=== PATIENT | female | born 1945 | race Caucasian/White ===

== ENCOUNTER 2016-12-07 10:38 | Day surgery (SDC) | payer MEDICARE, OTHER ==
[~2016-12-07] VITALS: Ht 157.5 cm; Wt 77.6 kg
[2016-12-07] VITALS (14 sets, daily range): BP systolic 94–163; BP diastolic 49–84; PULSE 71–84; RESP 11–20; O2SAT 97–100
[2016-12-07] MEDS: Lactated Ringer's 1,000 ML IV SCH ×2 (05:00→13:11)
[2016-12-07] MEDS: Clindamycin Inj 900 MG in IV Premix 1 EACH IV SCH ×2 (06:00→12:40)
--- NOTE | 2016-12-07 08:31 | PCM.HPANE ---
Patient Data Surgeon Admitting Provider: Attending Provider:Syed Harrison MD Primary Care Physician:Kennedy Ballard MD Other Provider:Lindsay Wuingham Anesthesia Reason for Visit Right Breast Cancer Ht/WT & BMI Height (Feet): 5 Height (Inches): 2 Weight (Kilograms): 77.56 Body Mass Index 31.00 Allergies Coded Allergies: Cephalosporins (Verified Allergy, Unknown, 07/19/09) amoxicillin (Verified Allergy, Unknown, 05/27/15) clavulanic acid (Verified Allergy, Unknown, 05/27/15) codeine (Verified Allergy, Unknown, 10/31/15) Past Anesthesia History Anesthesia History: Positive for:: Anesthesia Reactions (1984- excessive vomiting, no prior surgery recurrent), Denies:: Abnormal Airway, Difficult Intubation, Fam Anesthesia Reaction Diabetes History Hx Diabetes?: Yes Type of Diabetes: Type II Glycemic Control: Oral Medication MRSA MRSA: No Medications Blood Thinner: Aspirin Hypertension Medication: No Home Meds Incl Beta Eva: No Reported Medications Fulvestrant (Faslodex)250 Mg/Syr [id number] Mg IM 12/15/15 Palbociclib (Ibrance)125 Mg Tkphsei214 Mg PO daily x 21 days 12/15/15 Denosumab (Xgeva)120 Mg/1.7 Ml Annj199 Mg SUBQ monthy 06/23/15 Ergocalciferol (Vitamin D2) (Vitamin D)400 Unit Lsjynf980 Unit PO DAILY 06/15/15 Calcium Carbonate (Calcium)600 Mg Utfybg534 Mg PO DAILY 06/15/15 Multivitamin (Multi Vitamin Daily)1 Each Tablet1 Each PO DAILY 30 Days Ref 0 06/02/15 Simvastatin 20 Mg Kfzenn87 Mg PO HS Ref 0 06/02/15 Krill Oil 500 Mg Mohiahp544 Mg PO DAILY 06/02/15 Citalopram 40 Mg Azxzbk21 Mg PO DAILY 30 Days Ref 0 06/02/15 Aspirin 81 Mg Wprpft80 Mg PO DAILY Ref 0 06/02/15 Naproxen Sodium (Aleve)220 Mg Zgkasrx810-111 Mg PO DAILY PRN For Pain 06/02/15 History History of ENT Problems?: Yes HEENT History: Positive for:: Sinus Problem Denies:: Abnormal Airway Cataracts Difficult Intubation Dysphagia Glaucoma Hearing Problem TMJ Hx of Heart Problems?: No Cardiovascular History: Denies:: AICD Abdominal Aortic Aneurism Atrial Fibrillation Heart Murmur Hypertension Irregular Heartbeat Pacemaker Peripheral Vascular Rheumatic Fever Hx of Respiratory Problem?: No Respiratory History: Denies:: Asthma COPD Emphysema Oxygen Administration Pneumonia Tuberculosis Use of C-PAP Machine Use of Inhalers / NEBS Hx Neurologic Problems?: No Neurological History: Denies:: CVA Dementia Dizziness Headaches Multiple Sclerosis Parkinson's Disease Seizures TIA Hx of GI Problems?: Yes Gastrointestinal History: Positive for:: Gall Bladder Disease (removed) Gastroesphageal Reflux Heartburn Denies:: Hepatitis Liver Disease (fatty liver disease ) Hx of Problems?: No Genitourinary History: Denies:: Kidney Stones Urinary Tract Infection Female Hx: Positive for:: Problems with Breasts? (left breast ca current admission problem, hx of right breast ca) Denies:: Currently Skin History: Denies:: History Skin Disorders? Pressure Ulcers Hx Musculoskeletal Problems?: Yes Musculoskeletal History: Positive for:: Musculoskeletal Trauma (metastatic disease) Denies:: Back Injury Fibromyalgia Joint Replacement Myasthenia Gravis Osteoarthritis Hx of Psycho/Social Problems?: No Hx Surgeries?: Yes (right partial mast/ax node, windy, curtis, right ovarian cyst) Hx Any Other Health Problems?: Yes Other History: Positive for:: Cancer (right breast hx, left breast current ) Denies:: Thyroid Disease History Blood Transfusions: Positive for:: Accept Blood Products? Denies:: Blood Transfusions Hx Diabetes: Yes Hx Alcohol Use: NoHx Substance Use: No Smoking Status: Never Smoker Have You Smoked inLast 12 mo: No Stop/Bang Treated for Sleep Apnea?: No Do You Have a CPAP Machine?: No S-Snoring: Do You Snore Loudly: No T-Tired: feel tired, fatigued: No O-Obsered: Observed not breath: No P-Blood Pressure: treated: No B- Body Mass Index > 35 kg/m2: No A- Age over 50: Yes N- Neck Large Circumference: No G- Gender Male: No DEVYN Total Score: 1 DEVNY Risk Assessment: Low Risk, <3 Yes Risk Assessment Category Category 1A: Patient has history of documented sleep apnea, and HAS NOT received any narcotic, sedative or anesthesia administration during this stay. Category 1B: Patient has history of documented sleep apnea, and HAS received any narcotic , sedative or anesthesia administration during this stay Category 2: Patient has SUSPECTED Obstructive Sleep Apnea, and HAS received any narcotic , sedative or anesthesia administration during this stay. Category 3: Patient has SUSPECTED Obstructive Sleep Apnea and HAS NOT received narcotic, sedative or anesthesia administration during this stay. Category 4: Outpatient in Procedural Areas with known sleep apnea or who screen positive for High Risk via the STOP/BANG questionnaire. Exam Exam General Appearance: Alert, Oriented X3, Cooperative, No Acute Distress HEENT/AIRWAY: MP 2 Lungs: Clear to Auscultation, Normal Air Movement Heart: Exam Unremarkable, Regular Rate/Rhythm, No Murmurs/Rubs/Gallops Plan Impression Patient chart reviewed, patient interviewed and anesthestic plan with risks, benefits, and alternatives discussed, and informed consent obtained. NPO Status: 04/18@dinner, gum this am & water w am Rx ASA Physical Status: ASA2 Mod Systemic Disease Anesthetic Plan: Brett Vaca MD Dec 07, 2016 08:30
[~2016-12-07 10:38] MED LIST: ASPI-973 PO; CALC600T12 PO; CITA40TA13 PO; DENO120V SUBQ; ERGO400T3 PO; FAS500INJ IM; KRIL500C PO; MULT-1018 PO; NAPR220C11 PO; PALB125C PO; SIMV20TA4 PO
[2016-12-07] MEDS ORDERED: fentaNYL-PF 50 mCg/mL 2 mL Inj ONE (10:39)
[2016-12-07] MEDS ORDERED: Ketamine 10 mg/mL 20 mL Inj ONE (10:39)
[2016-12-07] MEDS ORDERED: Clindamycin 900 mg/50 mL D5W Premix IV ONE (11:59)
[2016-12-07] MEDS ORDERED: Bupivacaine-MPF 0.5% 30 mL Inj INFILTRATE ONE (13:10)
[2016-12-07] MEDS ORDERED: Lactated Ringer's 1,000 ML IV ONE (14:20)
[2016-12-07] MEDS ORDERED: Lactated Ringer's 1,000 ML IV SCH (14:50)
[2016-12-07] MEDS ORDERED: Ondansetron 2 mg/mL 2 mL Inj IVPUSH PRN ×2 (14:50→15:05)
[2016-12-07] MEDS ORDERED: Lactated Ringer's 500 ML IV PRN (14:50)
[2016-12-07] MEDS ORDERED: Dexamethasone 4 mg/mL Inj IVPUSH PRN (14:50)
[2016-12-07] MEDS ORDERED: MetoCLOpramide 5 mg/mL 2 mL Inj IVPUSH PRN ×2 (14:50→15:05)
[2016-12-07] MEDS ORDERED: Phenylephrine 10,000 mCg/mL Inj IVPUSH PRN (14:50)
[2016-12-07] MEDS ORDERED: fentaNYL-PF 50 mCg/mL 2 mL Inj IVPUSH PRN (14:50)
[2016-12-07] MEDS ORDERED: EPHEDrine Sulfate 50 mg/mL Inj IVPUSH PRN (14:50)
[2016-12-07] MEDS ORDERED: Polyethylene Glycol (PEG) 17 Gm Powder PO PRN (15:05)
[2016-12-07] MEDS ORDERED: Morphine PCA 1 mg/mL 30 mL Inj IV PRN (15:10)
--- NOTE | 2016-12-07 15:21 | PCM.SURGOP ---
Surgical Operative Report Date of Service: Dec 07, 2016 Pre Operative Diagnosis Right breast cancer Post Operative Diagnosis Same Procedure: Bilateral simple mastectomy with right chest wall resection Surgeon and Drop Machine Operator: Surgeon: Syed Harrison MD Assistants: Eldon Ontiveros PA-C Indication for Procedure 71-year-old woman who was originally diagnosed with right breast invasive lobular carcinoma in 2000, treated at that time with lumpectomy, axillary lymphadenectomy, adjuvant radiation and chemotherapy. She was then diagnosed with recurrent right breast cancer in May 2015 with widespread bony metastases. She has been treated with hormonal therapy. Recent PET/CT showed uptake in the right breast mass with maximum SUV 7.5. There was uptake in her bones, but no visceral metastases. MRI of the breast demonstrated the mass measuring 8.1 x 3.2 x 2.7 centimeters with peripheral enhancement. On my review , it was concerning for right pectoralis muscle involvement. Clinically, the mass was fixed in her chest wall as well. After discussion of risks and benefits, she agreed to proceed with bilateral mastectomy. Findings: There was no abnormality appreciated at the left breast. On the right side, on the posterior surface of the breast involving the right pectoralis major muscle , and even extending deep to the pectoralis major muscle, there was firm fibrotic tissue. This extended all the way to the ribs. Considerable portion of right pectoralis major muscle was resected en bloc, and a separate chest wall margin was taken as well. Procedure Details After smooth induction of general anesthesia, she was placed in the supine position with both arms out, and was prepped and draped in wide sterile fashion. A procedural pause was performed according to the SCOAP checklist, and all were found to be in agreement. Left simple mastectomy was performed first. An elliptical incision was made in the skin oriented transversely, encompassing the nipple areolar complex. She had a very broad breast and excess adipose tissue on her flank, so the incision extended nearly onto her back. Skin flaps were raised superiorly and inferiorly. Circumferential dissection was carried out with electrocautery as the skin and subcutaneous tissue was elevated off the underlying breast capsule. Margins of dissection were the left clavicle, the midline, the left inframammary crease, and the left midaxillary line. The left upper chest wall Port-A-Cath site was encountered, but the capsule was not violated. The left breast was then elevated off the underlying chest wall, and pectoralis fascia was resected en bloc. Laterally, the serratus fascia was not violated. The left breast was dissected free, oriented with suture, and passed off the field for permanent pathology. There was some excess left flank tissue, so separate ellipse was made laterally in order to help smooth out her flank contour. That tissue was dissected free with electrocautery down to the latissimus muscle area and it was oriented with suture, and sent for permanent pathology labeled as left flank skin. A 19 Thai round HARVEY drain was brought out through a separate incision laterally, and secured to the skin with a 3-0 nylon suture. The skin incision was closed with interrupted deep dermal 3-0 Vicryl sutures, and a running 4-0 Vicryl subcuticular stitch. An elliptical incision was then made on the right breast, encompassing the nipple areolar complex, as well as her prior transverse incision in the 12 o'clock position. Can flaps were raised superiorly and inferiorly. Circumferential dissection was carried out with electrocautery as the skin and subcutaneous tissue was elevated off the underlying breast parenchyma. Because of her prior radiation on that side, the dissection plane was very abnormal, and a capsule on the breast could not be appreciated. Margins of dissection were the right clavicle, the midline, the right inframammary crease, and the right anterior axillary line. The right axilla was very tethered with dense scar tissue that was released with electrocautery. The right breast was then elevated off the underlying chest wall. In the central to inferior breast, the breast was densely adherent to the underlying pectoralis muscle, so pectoralis major muscle was resected en bloc over an area measuring approximately 8 x 8 cm. Dissection was carried through very dense white tissue deep to the pectoralis major muscle. The right breast was oriented with suture, and passed off the field for permanent pathology. I elected to take another chest wall margin of the dense white tissue from the entire central to lateral portion of the dissection field. This time, the deep margin of dissection were the ribs, and there was still abnormal-appearing dense white fibrotic tissue. That tissue was dissected free , oriented with suture, and passed off the field, labeled as right chest wall tissue. Hemostasis was achieved. 5 mL of FloSeal was applied to the chest wall resection site. A 19 Thai round HARVEY drain was brought out through a separate incision laterally, and secured to the skin with a 3-0 nylon stitch. The skin incision was closed with interrupted deep dermal 3-0 Vicryl sutures, and a running 4-0 Vicryl subcuticular stitch. Steri-Strips and sterile dressings were applied to both sides. At the end of the case all needle and sponge counts were correct 2. The patient was awakened from anesthesia without difficulty, and taken to the recovery room in satisfactory condition, having tolerated the procedure well. Complications There were no periprocedural complications identified. Surgical Specimen Removed: Yes Specimen sent to Pathology: Yes Surgical Specimen description: Left breast. Left flank skin. Right breast. A chest wall tissue. Anesthetic Plan: GA Grafts, Implants: None Output, Estimated Blood Loss: 50 Blood Administration during steiner: No Drains: HARVEY Drain #1, HARVEY Drain #2 Catheters: None copies to: Neel Espinoza MD; Kennedy Ballard MD, Joshua D MD Dec 07, 2016 15:21
--- NOTE | 2016-12-07 16:26 | PCM.DISURG ---
Surgical Discharge Instruction Date of Service Dec 07, 2016 Dates of Hospitalization Date of Hospital Admission Providers Admitting Physician: Primary Care Physician: Kennedy Ballard MD Attending Physician: Syed Harrison MD Discharge Diagnosis Discharge Diagnosis right breast cancer Post Operative diagnosis Same Diet Discharge Diet: No restrictions Activity Discharge Activity-General: Activity as pain allows Dressing and Incisional Care Dressing Care: Allow Steri Stripes to fall off, Remove outer dressing after 24 hrs Hygiene: May shower Additional Instructions Discharge Instructions Empty HARVEY drains and record output daily, or more frequently as needed. Call the surgery clinic when individual drain output is less than 30mL in 24 hours for 2 consecutive days, and the drain can be removed in the office at that time. Follow Up Plan Follow Up Plan with Dr. Harrison in 10-14 days. Call your provider for: Fever (over 101.5F), Vomiting, Discharge @ incision, pus discharge Syed Harrison MD Dec 07, 2016 16:26
--- NOTE | 2016-12-07 16:48 | NUR ---
Post Op Pt arrived from PACU to OSC unit, 1022, via gurney. Scooted over to bed. Pt A&OX3 - talking, CORDERO, SCDs on, IV patent, VSS = on 4L NC, CPOx in place - Dr. Harrison and this RN educating pt re: IMPREGNATING HELPER machine for pain; Pt with bilateral mastectomy - dressing CDI, Bilateral HARVEY drains - patent and full - emptied and bulb to suction, on P500 SAE bed, Pain stating pain 2/10 after receiving IVP pain medication prior to arrival from PACU. Chart up to front for any additional orders. Denies numbness/tingling. Oriented to room and call light. Care continues. Addendum: 12/07/16 at 1652 by LOUIS JACOBS RN Pt with portacath to left side of chest, not accessed.
[2016-12-07] MEDS: Dextrose 5% 0.9% NaCl 1,000 ML IV SCH (16:53)
--- NOTE | 2016-12-07 22:55 | NUR ---
BLEEDING: At about 2100 pt. got up to the bathroom with one person SBA, voided, when she came back to bed noticed bleeding on left side incision. Applied pressure dressing and ice bag, the bleeding did not stop, then called paleontological helper surgeon. Dr. Ballard came in immediately and assessed Pt. replaced dressing, applied fresh steri strips, bleeding stopped. Jeovanny wrap applied around her chest. No more bleeding seen. cont. to monitor. Addendum: 12/07/16 at 0193 by GOPAL AZUL RN (NELLY) ADDENDUM: pt's IV also fell out when she got up from the toilet. New Iv line placed without difficulty. On going care.
[2016-12-08 00:53] VITALS: BP 138/76; PULSE 75; RESP 20; O2SAT 98
[2016-12-08] MEDS: Acetaminophen IV 1,000 MG in IV Premix 1 EACH IV PRN ×2 (01:10→08:50)
[2016-12-08 05:00] VITALS: RESP 20; O2SAT 98
[2016-12-08 05:29] VITALS: BP 142/68; PULSE 86; RESP 20; O2SAT 98
[2016-12-08 05:53] LABS: APPEARANCE,URINE CLEAR (CLEAR,HAZY); COLOR,URINE YELLOW (YELLOW); OCCULT BLOOD,URINE NEGATIVE (NEGATIVE); PH,URINE 5.5 (5.0-8.0); UROBILINOGEN,URINE NORMAL (NORMAL)
[2016-12-08] MEDS: Dextrose 5% 0.9% NaCl 1,000 ML IV SCH (06:50)
--- NOTE | 2016-12-08 12:57 | NUR ---
PT consult for ROM ther ex pt seen briefly for instruction in ROM ther ex, including shldr elev to 90 deg, elbow flex/ext; wrist flex/ext and radial/ulnar deviation; and finger flexion; encouraged to perform 10 reps 2-3x daily; encouraged to maintain UEs elevated on pillows when sitting around to control swelling; instructed in ways to don/doff clothing; encouraged to f/u with OP PT specializing in lymphedema management, if becomes an issue; no further PT
--- NOTE | 2016-12-08 13:33 | NUR ---
discharged home with family, incision looked good, scant bleeding now. taught how to take care of HARVEY drains. Pt eating/drinking, ambulating, will have f/u appt with Dr Harrison in 10-14 days
--- NOTE | 2016-12-08 15:51 | PROG NOTE ---
[address] [address] PROGRESS NOTE PATIENT: CIRO DOS SANTOS : 1945 MR#: [id number] ADMIT: 12/07/2016 JOB ID: [id number] DATE: 12/08/2016 Postop day one bilateral mastectomy. There was some incisional bleeding last night and she had her wounds inspected and a pressure dressing placed. I have removed the pressure dressing today. There has been no further bleeding and the wounds appear in good shape without wound separation. She is otherwise doing well, afebrile with stable vital signs. We will advance her to regular food and if she does well let her go home after lunchtime.
--- NOTE | 2016-12-09 08:53 | PCM.ANEP2 ---
Post Anesthesia Evaluation ASA/CMS Post Anesthesia VS in Patient's Normal Range?: Yes Resp Stable; Airway Patent?: Yes CV Function & Hydration Stable: Yes Mental Status Recovered?: Yes Pain control Satisfactory?: Yes N/V Control Satisfactory?: Yes Brett Connolly MD Dec 09, 2016 08:53
--- NOTE | 2016-12-09 08:53 | PCM.ANEP1 ---
Post Anesthesia Phase 1 PACU Phase 1 Assessment Date of Service: Dec 07, 2016 Anesthetic Administered: GA Level of Alertness: Awake, talking CORDERO's with Equal Strength: Yes Pain: No Pain Scale Score: 1 Nausea or Vomiting: No Lungs: Clear to Auscultation, Normal Air Movement Dermatome Level: Full Sensation Brett Connolly MD Dec 09, 2016 08:53
--- NOTE | 2016-12-10 08:15 | PCM.DC.SUR ---
Discharge Summary Date of Service: Date of Hospital Admission: December 03, 2016 Date of Operation(s): December 03, 2016 Date of Discharge: Dec 08, 2016 at 13:24 Diagnosis at Time of Discharge Primary Diagnosis: Right Breast cancer Secondary diagnosis: GERD depression Pre-diabetes Problems: Operation Bilateral simple mastectomy with right chest wall resection Brief History and Physical: 71-year-old woman who was originally diagnosed with right breast invasive lobular carcinoma in 2000, treated at that time with lumpectomy, axillary lymphadenectomy, adjuvant radiation and chemotherapy. She was then diagnosed with recurrent right breast cancer in May 2015 with widespread bony metastases. She has been treated with hormonal therapy. Recent PET/CT showed uptake in the right breast mass with maximum SUV 7.5. There was uptake in her bones, but no visceral metastases. MRI of the breast demonstrated the mass measuring 8.1 x 3.2 x 2.7 centimeters with peripheral enhancement. On my review , it was concerning for right pectoralis muscle involvement. Clinically, the mass was fixed in her chest wall as well. After discussion of risks and benefits, she agreed to proceed with bilateral mastectomy. Consultants: NONE Hospital Course: POD # [address] Finnegan's Progress Note Postop day one bilateral mastectomy. There was some incisional bleeding last night and she had her wounds inspected and a pressure dressing placed. I have removed the pressure dressing today. There has been no further bleeding and the wounds appear in good shape without wound separation. She is otherwise doing well, afebrile with stable vital signs. We will advance her to regular food and if she does well let her go home after lunchtime. Pathology: Pending Disposition: Home Follow-up Plan: Dr. Syed Harrison 10-14 days Aspirin (Aspirin) 81 Mg Tablet 81 MG PO DAILY (Reported) Calcium Carbonate (Calcium) 600 Mg Tablet 600 MG PO DAILY (Reported) Citalopram (Citalopram) 40 Mg Tablet 40 MG PO DAILY (Reported) Denosumab (Xgeva) 120 Mg/1.7 Ml Vial 120 MG SUBQ monthy (Reported) Ergocalciferol (Vitamin D2) (Vitamin D) 400 Unit Tablet 400 UNIT PO DAILY ( Reported) Fulvestrant (Faslodex) 250 Mg/Syr Syringe 250 MG IM (Reported) Krill Oil (Krill Oil) 500 Mg Capsule 500 MG PO DAILY (Reported) Multivitamin (Multi Vitamin Daily) 1 Each Tablet 1 EACH PO DAILY (Reported) Naproxen Sodium (Aleve) 220 Mg Capsule 220-440 MG PO DAILY PRN PRN For Pain ( Reported) Palbociclib (Ibrance) 125 Mg Capsule 100 MG PO daily x 21 days (Reported) Simvastatin (Simvastatin) 20 Mg Tablet 20 MG PO HS (Reported) copies to: Neel Espinoza MD; Kennedy Ballard MD, Sherri L PA-C Dec 10, 2016 08:15
--- NOTE | 2016-12-11 14:13 | PATH ---
SURGICAL PATHOLOGY Attending Physician:Jewell Winn CASE STATUS: Signed Out PATIENT NAME: CIRO DOS SANTOS PID: [id number] : 1945 DATE COLLECTED:12/07/2016 00:00 SPECIMEN: 1: Breast, Simple Mastectomy (w/o lymph nodes) 2: Skin, biopsy 3: Breast, Simple Mastectomy (w/o lymph nodes) 4: Muscle, Resection CLINICAL HISTORY: 1). LEFT BREAST, SHORT STITCH SUPERIOR, LONG SITITCH LATERAL 2). LEFT LATERAL SKIN, SHORT STITCH SUPERIOR, LONG LATERAL 3). RIGHT BREAST SHORT STITCH SUPERIOR LONG STITCH LATEAL 4). RIGHT CHEST WALL TISSUE, SHORT STITCH SUPEROR, LONG LATERAL FINAL DIAGNOSIS: 1.LEFT BREAST SIMPLE MASTECTOMY: NEGATIVE FOR MALIGNANCY AND SIGNIFICANT ATYPIA. 2.LEFT LATERAL SKIN: NEGATIVE FOR MALIGNANCY AND SIGNIFICANT ATYPIA. 3.RIGHT BREAST SIMPLE MASTECTOMY: INVASIVE CARCINOMA OF THE BREAST, SEE CAP CANCER CASE SUMMARY BELOW. CAP CANCER CASE SUMMARY INVASIVE CARCINOMA OF THE BREAST: PROCEDURE: TOTAL MASTECTOMY (SIMPLE MASTECTOMY) LYMPH NODE SAMPLING: NONE SPECIMEN LATERALITY: LEFT TUMOR SITE: CENTRAL TUMOR SIZE: 6.3 x 5.0 x 2.5 CM HISTOLOGIC TYPE: INFILTRATING LOBULAR CARCINOMA HISTOLOGIC GRADE: [place]HAM HISTOLOGIC SCORE 7 of 9 Glandular/Tubular differentiation: Absent, Score 3 of 3 Nuclear Pleomorphism: Intermediate, Score 2 of 3 Mitotic Rate: Score 2 of 3 Overall Grade: Grade 2 of 3 CARCINOMA IN SITU: NOT IDENTIFIED MACROSCOPIC AND MICROSCOPIC EXTENT OF TUMOR SKIN: NEGATIVE FOR TUMOR NIPPLE: NEGATIVE FOR TUMOR SKELETAL MUSCLE: FOCALLY INVADED BY TUMOR MARGINS INVASIVE CARCINOMA: Anterior: 10.5 CM Posterior: POSITIVE IN MULTIPLE FOCI Superior: POSITIVE IN MULTIPLE FOCI Inferior: 1.6 CM Medial: 9.5 CM Lateral: 6.5 CM LYMPH-VASCULAR INVASION: NOT IDENTIFIED PATHOLOGIC STAGING: AJCC, 7th ed., 2010 PRIMARY TUMOR: pT4 REGIONAL LYMPH NODES: pNX ADDITIONAL PATHOLOGIC FINDINGS: Specify: DENSE FIBROSIS IN AREA OF PREVIOUS METAL CLIPS WITH NO EVIDENCE OF TUMOR IN THIS AREA ANCILLARY STUDIES: Biomarkers Performed Previously on Case: BIOMARKERS PERFORMED ON PREVIOUS NEEDLE BIOPSY ([id number]) Estrogen Receptor (ER) Status: POSITIVE Progesterone Receptor (PgR) Status: NEGATIVE HER2 (by immunohistochemistry): NEGATIVE 4.RIGHT CHEST WALL TISSUE: FIBROFATTY TISSUE AND SKELETAL MUSCLE WITH MULTIPLE FOCI OF INFILTRATING LOBULAR CARCINOMA, INCLUDING AREAS OF INVASION OF SKELETAL MUSCLE. LATERAL INKED MARGIN POSITIVE FOR TUMOR. TUMOR PRESENT LESS THAN 0.1 CM FROM THE NEW POSTERIOR MARGIN. ICD10 CODE C50.111 GROSS DESCRIPTION: The specimens are received in formalin, labeled with the patient's name, and sublabeled as the following: (1) left breast, short superior, long lateral; (2) left lateral skin, long lateral/short superior; (3) right breast, short superior, long lateral; (4) right chest wall tissue. (1) The specimen consists of a left breast (5.2 cm AP, 23.2 cm SI, 28.0 cm ML) partially covered by an ellipse of skin (11.3 cm SI, 28.0 cm ML) with nipple/areola complex (3.7 x 3.5 cm). The axillary tail is absent. The specimen is oriented with 2 black sutures (short-superior, long-lateral). The breast tissue is fibrofatty with no nodules, masses or lesions identified. The skin and nipple/areola complex are hogue-white and unremarkable. Ink code: purple-anterior; yellow-posterior; black-superior; orange-inferior; green-medial; blue-lateral. Section code: (1A) nipple; (1B) skin; (1C, 1D) upper outer quadrant; (1E, 1F) lower outer quadrant; (1G, 1H) upper inner quadrant; (1I, 1J) lower inner quadrant. (2) the specimen consists of an oriented piece of skin with subcutaneous tissue (2.0 cm AP, up to 3.3 cm SI, 11.5 cm ML) oriented with 2 black sutures (short-superior, long is lateral). The skin is hogue-pink and contains a linear puckered area (length-1.1 cm) located 0.5 cm from the superior and 0.4 cm of the inferior resection margins. The subcutaneous tissue is fatty. The nodules, masses or lesions are identified. Ink code: purple-anterior; yellow-posterior; black-superior; orange-inferior; green-medial; blue-lateral. Section code: (2A) medial tip; (2B, 2C) ellipse of skin, serially sectioned and submitted ML, nutrition representative; (2D) lateral resection margin, perpendicularly sectioned, nutrition representative. (3) The consists of a right breast (6.7 cm AP, 22.2 cm SI, 22.3 cm ML) partially covered by an ellipse of skin (8.5 cm SI, 22.3 cm ML) with nipple/areola complex (5.0 x 4.0 cm). The axillary tail is absent. The specimen is oriented with 2 black sutures (short-superior, long-lateral). The skin is hogue-pink in and contains a linear scar (length-10.6 cm) one located 1.0 cm from the inferior resection margin and 3.0 cm inferior to the nipple. The specimen is serially Sectioned LM into 54 slices. The breast tissue is fatty and contains a hogue-yellow and orange solid firm irregular mass (6.3 x 5.0 x 2.5 cm) within slices #13-#32. The mass is 10.5 from the skin nipple surface, less than 0.1 cm from the posterior; less than 0.1 cm from the superior, 1.6 cm from the inferior, 9.5 cm from the medial and 6.5 cm from the lateral resection margins. Within slices #43-#45, an irregular firm fibrous area (2.2 x 1.5 x 1.5 cm) containing multiple silver colored metal clips are identified. No other nodules, masses, lesions, or irregular areas are identified. Ink code: purple-anterior; yellow-posterior; black-superior; orange-inferior; green-medial; blue-lateral. Section code: (3A) nipple; (3B) skin; (3C) lateral resection margin, perpendicularly sectioned, nutrition representative; (3D) slice #13, nutrition representative; (3E) slice #14, nutrition representative; (3F) slice #15, nutrition representative; (3G) slice #16, nutrition representative; (3H) slice #17, nutrition representative; (3I) slice #18, nutrition representative; (3J) slice #19, nutrition representative; (3K) slice #20, nutrition representative; (3L) slice #21, nutrition representative; (3M-3N) slice #22, nutrition representative; (3O-3P) slice #23, nutrition representative; (3Q) slice #24, nutrition representative; (3R) slice #25, nutrition representative; (3S) slice #26, nutrition representative; (3T) slice #27, nutrition representative; (3U) slice #28, nutrition representative; (3V) slice #29, nutrition representative; (3W) slice #30, nutrition representative; (3X) slice #31, nutrition representative; (3Y) slice #32, nutrition representative; (3Z, 3AA) slices #43-#45, nutrition representative; (3BB) medial resection margin, perpendicularly sectioned, nutrition representative. (4) The specimen consists of an oriented piece of muscle (0.5 cm AP, 8.1 cm SI, 5.0 cm ML) oriented with 2 black sutures (short-superior, long left lateral). The tissue is brown and focally if firm and fibrous. No nodules or masses or lesions are identified. Ink code: purple-anterior; yellow-posterior; black-superior; orange-inferior; green-medial; blue-lateral. Section code: (4A) superior resection margin, perpendicularly sectioned; (4B-4H) tissue, serially sectioned and submitted SI; (4I) inferior resection margin, perpendicularly sectioned. The specimen entirely submitted. Note: Approximate total fixation time in formalin are all specimens-52 hours and 30 minutes calculated using a collection date of December 07, 2016 with no collection time given. 12/08/16 JM MICRO DESCRIPTION: See diagnosis. ICD-9 CODES: CPT CODES: 1: 84885 2: 45585 3: 65832 4: 10007 Electronically Signed Out Hung Castillo MD [facility] Pathology [facility] [address], [place] [address] Technical component performed at [facility], [facility] [address], [place], [address]
[2016-12-25] MEDS ORDERED: OXYC1TAB24 PO (09:10)
[2017-01-23] MEDS ORDERED: ASCO-294 PO (11:46)
[2017-01-23] MEDS ORDERED: FERR-83 PO (11:46)
== END 2016-12-08 13:24 | disposition home or self-care (01) ==
LOC: SAS 10:38 → OSC 16:43 → SAS 12-08 13:24
PROVIDERS: ATTEND Student in an Organized Health Care Education/Training Program
DX: C50.111 Malignant neoplasm of central portion of right female breast (principal); C41.9 Malignant neoplasm of bone and articular cartilage, unspecified; Z17.0 Estrogen receptor positive status [ER+]; Z92.21 Personal history of antineoplastic chemotherapy; Z92.3 Personal history of irradiation
CPT/HCPCS: 19303; 36415; 80048; 81000; 85014; 88305; 88307; J0131; J2250; J2270; J3010; J7042; J7120